=== PATIENT | male | born 1970 | race Caucasian/White ===

== ENCOUNTER 2020-05-07 08:22 | Outpatient (CLI) | payer OTHER | END 2020-05-07 08:34 | disposition home or self-care (01) | LOC: RAD 08:22 | DX: M25.571 Pain in right ankle and joints of right foot (principal) ==

== ENCOUNTER 2020-08-06 08:54 | Outpatient (CLI) | payer OTHER | END 2020-08-06 09:03 | disposition home or self-care (01) | LOC: RAD 08:54 | PROVIDERS: ATTEND Orthopaedic Surgery | DX: M25.511 Pain in right shoulder (principal); M75.121 Complete rotator cuff tear or rupture of right shoulder, not specified as traumatic ==

== ENCOUNTER 2020-10-13 05:50 | Day surgery (SDC) | payer OTHER | END 2020-10-13 11:25 | disposition home or self-care (01) | LOC: CIR.AMB 05:50 | PROVIDERS: ATTEND Orthopaedic Surgery | DX: M75.121 Complete rotator cuff tear or rupture of right shoulder, not specified as traumatic (principal); M75.21 Bicipital tendinitis, right shoulder; Z20.822 Contact with and (suspected) exposure to COVID-19 ==

== ENCOUNTER 2022-03-27 14:21 | Emergency (ER) | payer OTHER ==
[~2022-03-27] VITALS: Ht 172.7 cm; Wt 108.0 kg
== END 2022-03-27 16:14 | disposition home or self-care (01) ==
LOC: ER 14:21
DX: I10 Essential (primary) hypertension (principal); Z91.013 Allergy to seafood

== ENCOUNTER 2023-09-19 07:27 | Outpatient (CLI) | payer OTHER | END 2023-09-19 07:36 | disposition home or self-care (01) | LOC: TOM 07:27 | PROVIDERS: ATTEND Internal Medicine | DX: R10.9 Unspecified abdominal pain (principal) ==

== ENCOUNTER 2024-04-07 21:41 | Emergency (ER) | payer OTHER ==
[~2024-04-07] VITALS: Ht 172.7 cm; Wt 106.6 kg
[2024-04-07] MEDS ORDERED: COZAAR100 MG PO (22:01)
[2024-04-07] MEDS ORDERED: LOSARTAN POTAS100 MG PO (22:01)
[2024-04-07] MEDS ORDERED: FAMOTIDINE/PF 20 MG/2 ML VIAL IV PUSH STA (23:30)
[2024-04-07 23:59] LABS: HEMATOCRIT 40.6 % (39.0-48.0); HEMOGLOBIN 14.3 g/dL (13-16.00); MEAN CELL VOLUME 86.1 fL (80.0-100.00); MEAN CORPUSCULAR HEMOGLOBIN 30.4 pg (27.00-32.0); MEAN CORPUSCULAR HGB CONC 35.3 g/dl (32.0-36.0); PLATELET COUNT 277 K/uL (150-450); RED BLOOD COUNT 4.72 M/uL (4.00-6.00); RED CELL DISTRIBUTION WIDTH 13.4 % (11.5-14.5)
[2024-04-08 00:23] LABS: CALCIUM 9.2 mg/dL (8.5-10.1); CREATININE SERUM 0.92 mg/dL (0.70-1.30); GFR 85.41; POTASSIUM 3.67 mEq/L (3.5-5.1)
== END 2024-04-08 01:16 | disposition home or self-care (01) ==
LOC: ER 21:43
PROVIDERS: General Practice
DX: K21.9 Gastro-esophageal reflux disease without esophagitis (principal); R07.89 Other chest pain; I10 Essential (primary) hypertension; Z91.013 Allergy to seafood

== ENCOUNTER 2024-11-28 23:29 | Emergency (ER) | payer OTHER ==
[~2024-11-28] VITALS: Ht 170.2 cm; Wt 106.6 kg
[~2024-11-28 23:29] MED LIST: COZAAR100 MG PO; LOSARTAN POTAS100 MG PO
[2024-11-28] MEDS ORDERED: NORVASC10 MG (23:45)
[2024-11-28] MEDS ORDERED: LOSARTAN-HCTZ1 EAC2 (23:45)
== END 2024-11-29 02:51 | disposition home or self-care (01) ==
LOC: ER 23:37
DX: M25.471 Effusion, right ankle (principal); M25.472 Effusion, left ankle; Z91.013 Allergy to seafood; I10 Essential (primary) hypertension

== ENCOUNTER 2025-04-10 07:53 | Outpatient (CLI) | payer OTHER ==
[~2025-04-10 07:53] MED LIST changes: +LOSARTAN-HCTZ1 EAC2; +NORVASC10 MG
== END 2025-04-10 07:57 | disposition home or self-care (01) ==
LOC: RAD 07:53
DX: M99.01 Segmental and somatic dysfunction of cervical region (principal); M99.02 Segmental and somatic dysfunction of thoracic region; M99.03 Segmental and somatic dysfunction of lumbar region; M25.562 Pain in left knee; M25.571 Pain in right ankle and joints of right foot

== ENCOUNTER 2025-06-26 06:47 | Outpatient (CLI) | payer OTHER | END 2025-06-26 07:47 | disposition home or self-care (01) | LOC: TOM 06:47 | PROVIDERS: ATTEND Internal Medicine | DX: R10.9 Unspecified abdominal pain (principal) ==